=== PATIENT | male | born 1945 | race Caucasian/White ===

== ENCOUNTER 2021-06-02 14:36 | Emergency (ER) | payer BC, MEDICARE ==
[~2021-06-02] VITALS: Ht 195.6 cm; Wt 91.5 kg
--- NOTE | 2021-06-02 15:24 | RAD ---
CT STROKE HEAD W/O History: Reason: r. sided sensation decreased, reports weaknesS / Spl. Instructions: / History: Comparison: None. Technique: Noncontrast CT imaging was performed of the head. Exposure: One or more of the following individualized dose reduction techniques were utilized for thi s examination: 1. Automated exposure control 2. Adjustment of the mA and/or kV according to patient size 3. Use of iterative reconstruction technique. Findings: No intracranial hemorrhage. No mass effect. No hydrocephalus. Mild brain parenchymal volume loss. Mild foci of decreased attenuation within the hemispheric white m atter, most often due to chronic microvascular ischemia. Intracranial atheromatous calcifications. Imaged orbits are unremarkable. Imaged paranasal sinuses and mastoid air cells are clear. No acute ca lvarial fracture. Impression: 1. No acute intracranial abnormality. 2. Mild nonspecific white matter changes, most often due to chronic microvascular ischemia. If persi stent clinical concern for acute ischemia, MRI can better evaluate. FOR INTERNAL CODING PURPOSES Critical result: Findings discussed with ER at 06/02/2021 3:20 PM. RESULT CODE: (C) Electronically signed by: Zeke Castillo DO (06/02/2021 3:22 PM) [id number]
--- NOTE | 2021-06-02 15:28 | PHYS DOC ---
Past History Additional Past Medical Histor: [facility] (MARTINEZ BOTELLO APRN) Past Surgical History: Other Additional Past Surgical Histo: LIVER TRANSPLANT 2006; DIAYLSIS SHUNT R ARM; HERNIA REPAIR; HEART ABLATION (MARTINEZ BOTELLO APRN) Alcohol Use: None (MARTINEZ BOTELLO APRN) General Adult EDM: Chief Complaint: UPPER EXTREMITY PAIN HPI: HPI: Patient presents to the emergency department for right arm pain and tingling in his right hand. Patient reports that he laid down around 1400 and started experiencing right-sided neck pain that radiated into his head along with tingling in his right hand and right arm pain. Patient is a dialysis patient and receives dialysis Saturday and Saturday. He also has a history of liver disease with liver transplant and hypertension. Patient denies any chest pain, fevers, vision loss, or shortness of breath. (MARTINEZ BOTELLO APRN) Review of Systems: Review of Systems: Constitutional: See HPI Eyes: See HPI Respiratory: See HPI Cardiovascular: See HPI GI: See HPI Neurologic: See HPI (MARTINEZ BOTELLO APRN) Allergies: Allergies: Allergies Coded Allergies Type Severity Reaction Last Updated Verified ENZO Inhibitors Allergy Unknown 06/02/21 Yes Beta-Blockers (Beta-Adrenergic Bloc Allergy Unknown 06/02/21 Yes (MARTINEZ BOTELLO APRN) Physical Exam: PE: Constitutional: Well developed, well nourished, no acute distress, non-toxic appearance. [] HENT: Normocephalic, atraumatic, bilateral external ears normal, oropharynx moist, no oral exudates, nose normal. [] Eyes: PERRLA, 4 mm bilaterally, EOMI, conjunctiva normal, no discharge. [] Neck: Normal range of motion, no tenderness, supple, no stridor. [] Cardiovascular:Heart rate regular rhythm, no murmur [] Lungs & Thorax: Bilateral breath sounds clear to auscultation [] Abdomen: Bowel sounds normal, soft, no tenderness, no masses, no pulsatile masses. [] Skin: Warm, dry, no erythema, no rash. [] Back: Normal range of motion Extremities: No tenderness, no cyanosis, no clubbing, ROM intact, no edema, dialysis fistula right arm-thrill palpated. [] Neurologic: Alert and oriented X 3, normal motor function, normal sensory function, no focal deficits noted, see NIHSS. [] Psychologic: Affect normal, judgement normal, mood normal. [] (MARTINEZ BOTELLO APRN) Current Patient Data: Labs: Laboratory Tests Test 06/02/21 15:30 White Blood Count 8.5 x10^3/uL Red Blood Count 3.83 x10^6/uL Hemoglobin 12.6 g/dL Hematocrit 37.2 % Mean Corpuscular Volume 97 fL Mean Corpuscular Hemoglobin 33 pg Mean Corpuscular Hemoglobin Concent 34 g/dL Red Cell Distribution Width 14.2 % Platelet Count 196 x10^3/uL Neutrophils (%) (Auto) 66 % Lymphocytes (%) (Auto) 21 % Monocytes (%) (Auto) 10 % Eosinophils (%) (Auto) 3 % Basophils (%) (Auto) 1 % Neutrophils # (Auto) 5.5 x10^3uL Lymphocytes # (Auto) 1.7 x10^3/uL Monocytes # (Auto) 0.9 x10^3/uL Eosinophils # (Auto) 0.3 x10^3/uL Basophils # (Auto) 0.1 x10^3/uL Prothrombin Time 10.2 SEC Prothromb Time International Ratio 1.0 Activated Partial Thromboplast Time 27 SEC Sodium Level 138 mmol/L Potassium Level 4.2 mmol/L Chloride Level 96 mmol/L Carbon Dioxide Level 34 mmol/L Anion Gap 8 Blood Urea Nitrogen 25 mg/dL Creatinine 4.8 mg/dL Estimated GFR (Cockcroft-Gault) 11.9 BUN/Creatinine Ratio 5 Glucose Level 113 mg/dL Glucose (Fingerstick) 117 mg/dL Calcium Level 9.2 mg/dL Total Bilirubin 0.4 mg/dL Aspartate Amino Transf (AST/SGOT) 19 U/L Alanine Aminotransferase (ALT/SGPT) 22 U/L Alkaline Phosphatase 81 U/L Troponin I Quantitative 0.017 ng/mL Total Protein 7.4 g/dL Albumin 3.5 g/dL Albumin/Globulin Ratio 0.9 Current Medications Medications (Trade) Dose Ordered Sig/Ady Route PRN Reason Start Time Stop Time Status Last Admin Dose Admin Iohexol (Omnipaque 350 Mg/ml) 100 ml 1X ONCE IV 06/02/21 15:30 06/02/21 15:31 DC 06/02/21 16:22 Info (Do NOT chart on this entry -- for MONITORING) 1 each PRN DAILY PRN MC SEE COMMENTS 06/02/21 15:30 06/04/21 15:29 Diphenhydramine HCl (Benadryl) 25 mg 1X ONCE IVP 06/02/21 15:30 06/02/21 15:31 DC 06/02/21 16:01 Prochlorperazine Edisylate (Compazine) 10 mg 1X ONCE IV 06/02/21 15:30 06/02/21 15:31 DC 06/02/21 16:03 Ketorolac Tromethamine (Toradol 30mg Vial) 30 mg 1X ONCE IVP 06/02/21 15:30 06/02/21 15:31 DC 06/02/21 15:59 Vital Signs: Vital Signs Date Time Temp Pulse Resp B/P (MAP) Pulse Ox O2 Delivery O2 Flow Rate FiO2 06/02/21 14:47 97.7 80 18 151/73 (99) 96 Room Air (MARTINEZ BOTELLO PATIENT CARE SECRETARY) EKG: EKG: EKG performed by ER staff at 1515 shows sinus rhythm with a rate of 78, QTc of 474, no STEMI read by Dr. Leger at 1522 [] (MARTINEZ BOTELLO PATIENT CARE SECRETARY) Radiology/Procedures: Radiology/Procedures: []PROCEDURE: CT CODE STROKE HEAD WO CT STROKE HEAD W/O History: Reason: r. sided sensation decreased, reports weaknesS / Spl. Instructions: / History: Comparison: None. Technique: Noncontrast CT imaging was performed of the head. Exposure: One or more of the following individualized dose reduction techniques were utilized for this examination: 1. Automated exposure control 2. Adjustment of the mA and/or kV according to patient size 3. Use of iterative reconstruction technique. Findings: No intracranial hemorrhage. No mass effect. No hydrocephalus. Mild brain parenchymal volume loss. Mild foci of decreased attenuation within the hemispheric white matter, most often due to chronic microvascular ischemia. Intracranial atheromatous calcifications. Imaged orbits are unremarkable. Imaged paranasal sinuses and mastoid air cells are clear. No acute calvarial fracture. Impression: 1. No acute intracranial abnormality. 2. Mild nonspecific white matter changes, most often due to chronic microvascular ischemia. If persistent clinical concern for acute ischemia, MRI can better evaluate. FOR INTERNAL CODING PURPOSES Critical result: Findings discussed with ER at 06/02/2021 3:20 PM. RESULT CODE: (C) Electronically signed by: Zeke Castillo DO (06/02/2021 3:22 PM) [id number] DICTATED AND SIGNED BY: ZEKE CASTILLO DO DATE: 06/02/21 1515 CC: CATHY CHIN; EMERGENCY,DEPARTMENT; MARTINEZ BOTELLO PATIENT CARE SECRETARY ~MTH0 0 PROCEDURE: CT ANGIOGRAPHY HEAD AND NECK CTA HEAD AND NECK W/WO CONTRAST History:Reason: decreased sensation face, right side of arm/hand numbness / Spl. Instructions: DIALYSIS PATIENT - DIALYSIS ON SATURDAY/ Technique: After bolus of intravenous contrast, volumetric CT data acquisition was acquired of the head and neck. Multiplanar reconstruction images to include MIP and 3-D reconstruction images are submitted. Exposure: One or more of the following individualized dose reduction techniques were utilized for this examination: 1. Automated exposure control 2. Adjustment of the mA and/or kV according to patient size 3. Use of iterative reconstruction technique. Comparison: None Any determination of stenosis is based on NASCET criteria. Head CTA: ICA: Severe atheromatous plaque within the carotid siphons with mild and moderate multifocal narrowing. No occlusion. MCA: No stenosis, occlusion or aneurysm. ERIKA: No stenosis, occlusion or aneurysm. CLINICAL SCIENCE LIAISON: No stenosis, occlusion or aneurysm. Basilar artery: No stenosis, occlusion or aneurysm. Distal vertebral arteries: Decreased flow with occlusion of the right intracranial vertebral artery just proximal to the basilar artery. Posterior inferior cerebellar artery not well identified on the right. Pain left vertebral artery. Patent superior sagittal, straight, transverse and sigmoid venous sinuses. CT angiogram neck: Aortic arch: Mild atheromatous plaque within the aortic arch. Common carotid arteries: No stenosis, occlusion or dissection. Internal carotid arteries: Moderate or most plaque within the carotid bifurcations. Less than 50 percent narrowing of the bilateral proximal internal carotid arteries. No occlusion. External carotid arteries: Patent Vertebral arteries: No meniscal within the right distal vertebral artery within the neck. Imaged lung apices are unremarkable. Soft tissues appear normal. Bones: Moderate multilevel cervical spondylosis most prominent C4-C5 and C5-C6. Multilevel canal narrowing with ossification of the posterior longitudinal ligament most prominent at the C5-C6 level. Multilevel neuroforaminal narrowing. Impression: 1. Right distal vertebral artery narrows and occludes intracranially at the termination, may relate to atherosclerotic occlusion although dissection is possible. 2. Moderate atheromatous plaque within the carotid bifurcations with less than 50 percent narrowing of the bilateral proximal internal carotid arteries. 3. Moderate cervical spondylosis with ossification of posterior longitudinal ligament contributing to canal narrowing most prominent at the C5-C6 level. MRI can further evaluate severity as clinically warranted. FOR INTERNAL CODING PURPOSES Critical result: Findings discussed with Martinez Lowe at 06/02/2021 5:08 PM. RESULT CODE: (C) Electronically signed by: Zeke Castillo DO (06/02/2021 5:13 PM) [id number] DICTATED AND SIGNED BY: ZEKE CASTILLO DO DATE: 06/02/211656 CC: CATHY CHIN; MARTINEZ BOTELLO APRN ~MTH0 0 (MARTINEZ BOTELLO APRN) Heart Score: C/O Chest Pain: No Risk Factors: Risk Factors: DM, Current or recent (<one month) smoker, HTN, HLP, family history of CAD, obesity. Risk Scores: Score 0 - 3: 2.5% MACE over next 6 weeks - Discharge Home Score 4 - 6: 20.3% MACE over next 6 weeks - Admit for Clinical Observation Score 7 - 10: 72.7% MACE over next 6 weeks - Early Invasive Strategies (MARTINEZ BOTELLO APRN) Course & Med Decision Making: Course & Med Decision Making Pertinent Labs and Imaging studies reviewed. (See chart for details) Patient presents to the emergency department for right-sided neck pain that radiates into his head and down his arm. As the ER nurse was evaluating patient, he started complaining of tingling in his right hand. Following that finding, a code stroke was called for decreased sensation to his right forehead and right lower leg. Patient's stroke scale was 1, patient had decreased sensation to his right forehead but sensation was intact to his mid face and lower face is well is intact sensation to his right arm and decreased sensation to his right lower leg.. CT scan of head was negative for any acute findings. Blood work ordered as well as a CT angios head and neck. Patient's creatinine was 4.8. CBC and troponin were negative. Patient CT scan of his head was negative. His CTA showed right distal vertebral artery narrowing and occlusion intracranially possible atherosclerotic occlusion or dissection and 50% narrowing of bilateral proximal internal carotid arteries. I spoke to Dr. Tipton's nurse practitioner regarding transfer to [facility] a nd he declined transfer stating that patient need to go to higher level of care. Spoke to [facility]'s transfer line and I spoke to Dr. Venegas with neurology and he agreed to admit the patient under his services stroke activation for neurological evaluation, MRI. I discussed patient's findings with him and his and also discussed care plan including transfer to [facility]. Patient states that he still has a headache and right hand tingling. They were agreeable to transfer. Pain medication ordered for patient's headache. Images clouded to . Transfer of patient in process 1743. Patient departed ER at this time 1850. (MARTINEZ BOTELLO APRN) Dragon Disclaimer: Dragon Disclaimer: This electronic medical record was generated, in whole or in part, using a voice recognition dictation system. (MARTINEZ BOTELLO APRN) NIH Stroke Scale: NIH Stroke Scale Response (Comments) Value Level of Consciousness: 0 Alert/Responsive 0 LOC Questions: 0 Answers both correctly 0 LOC Commands: 0 Performs both tasks 0 Best Gaze: 0 Normal 0 Visual: 0 No visual loss 0 Facial Palsy: 0 Normal, symmetrical 0 Motor - Left Arm 0 No drift 0 Motor - Right Arm 0 No drift 0 Motor - Left Leg 0 No drift 0 Motor: Right Leg 0 No drift 0 Limb Ataxia: 0 Absent 0 Sensory: 1 Mid to moderate loss (decreased sensat ion forehead, r lower leg. normal sensation rest of face and leg, and r. arm) 1 Best Language: 0 Normal 0 Dysathria: 0 Normal 0 Extinction and Inattention: 0 Normal 0 Total 1 Departure Departure: Impression: Primary Impression: Vertebral artery stenosis/occlusion Qualified Codes: I65.01 - Occlusion and stenosis of right vertebral artery Additional Impressions: Numbness and tingling of right hand Headache Qualified Codes: R51.9 - Headache, unspecified Disposition: 02 SHORT TERM HOSPITAL Condition: STABLE Referrals: CATHY CHIN (PCP) Attending Signature Attending Signature I have participated in the care of this patient and I have reviewed and agree with all pertinent clinical information above including history, exam, and recommendations. (GURVINDER ENAMORADO MD) MARTINEZ BOTELLO APRN Jun 02, 2021 15:28 GURVINDER ENAMORADO MD Jun 04, 2021 17:07
[2021-06-02] MEDS ORDERED: KETOROLAC 30 MG/ML VIAL. IVP ONE (15:30)
[2021-06-02] MEDS ORDERED: IOHEXOL 350 MG/ML 100 ML VIAL. IV ONE (15:30)
[2021-06-02] MEDS ORDERED: PROCHLORPERAZINE 10 MG/2 ML VIAL. IV ONE (15:30)
[2021-06-02] MEDS ORDERED: diphenhydrAMINE 50 MG/ML VIAL IVP ONE (15:30)
[2021-06-02] MEDS ORDERED: CONTRAST GIVEN. MC PRN (15:30)
[2021-06-02 16:22] LABS: CALCIUM 9.2 mg/dL (8.5-10.1); CREATININE 4.8 mg/dL (0.7-1.3); GFR 11.9; POTASSIUM 4.2 mmol/L (3.5-5.1)
[2021-06-02 16:25] LABS: BASO # 0.1 x10^3/uL (0.0-0.2); BASO % 1 % (0-3); EOS # 0.3 x10^3/uL (0.0-0.7); EOS % 3 % (0-3); HEMATOCRIT 37.2 % (39.0-53.0); HEMOGLOBIN 12.6 g/dL (13.0-17.5); LYMPH # 1.7 x10^3/uL (1.0-4.8); LYMPH % 21 % (24-48); MEAN CORPUSCULAR HEMOGLOBIN 33 pg (25-35); MEAN CORPUSCULAR HGB CONC 34 g/dL (31-37); MEAN CORPUSCULAR VOLUME 97 fL (79-100); MONO # 0.9 x10^3/uL (0.0-1.1); MONO % 10 % (0-9); NEUT # 5.5 x10^3uL (1.8-7.7); NEUT % 66 % (31-73); PLATELET COUNT 196 x10^3/uL (140-400); RED BLOOD COUNT 3.83 x10^6/uL (4.30-5.70); RED CELL DISTRIBUTION WIDTH 14.2 % (11.5-14.5); WHITE BLOOD COUNT 8.5 x10^3/uL (4.0-11.0)
[2021-06-02 16:28] LABS: ALBUMIN 3.5 g/dL (3.4-5.0); ALBUMIN/GLOBULIN RATIO 0.9 (1.0-1.7); TOTAL BILIRUBIN 0.4 mg/dL (0.2-1.0); TOTAL PROTEIN 7.4 g/dL (6.4-8.2)
--- NOTE | 2021-06-02 17:15 | RAD ---
CTA HEAD AND NECK W/WO CONTRAST History:Reason: decreased sensation face, right side of arm/hand numbness / Spl. Instructions: DIALYS IS PATIENT - DIALYSIS ON SATURDAY/ Technique: After bolus of intravenous contrast, volumetric CT data acquisition was acquired of the he ad and neck. Multiplanar reconstruction images to include MIP and 3-D reconstruction images are submi tted. Exposure: One or more of the following individualized dose reduction techniques were utilized for thi s examination: 1. Automated exposure control 2. Adjustment of the mA and/or kV according to patient size 3. Use of iterative reconstruction technique. Comparison: None Any determination of stenosis is based on NASCET criteria. Head CTA: ICA: Severe atheromatous plaque within the carotid siphons with mild and moderate multifocal narrowin g. No occlusion. MCA: No stenosis, occlusion or aneurysm. ERIKA: No stenosis, occlusion or aneurysm. GIS ADMINISTRATOR: No stenosis, occlusion or aneurysm. Basilar artery: No stenosis, occlusion or aneurysm. Distal vertebral arteries: Decreased flow with occlusion of the right intracranial vertebral artery j ust proximal to the basilar artery. Posterior inferior cerebellar artery not well identified on the r ight. Pain left vertebral artery. Patent superior sagittal, straight, transverse and sigmoid venous sinuses. CT angiogram neck: Aortic arch: Mild atheromatous plaque within the aortic arch. Common carotid arteries: No stenosis, occlusion or dissection. Internal carotid arteries: Moderate or most plaque within the carotid bifurcations. Less than 50 perc ent narrowing of the bilateral proximal internal carotid arteries. No occlusion. External carotid arteries: Patent Vertebral arteries: No meniscal within the right distal vertebral artery within the neck. Imaged lung apices are unremarkable. Soft tissues appear normal. Bones: Moderate multilevel cervical spondylosis most prominent C4-C5 and C5-C6. Multilevel canal narr owing with ossification of the posterior longitudinal ligament most prominent at the C5-C6 level. Mul tilevel neuroforaminal narrowing. Impression: 1. Right distal vertebral artery narrows and occludes intracranially at the termination, may relate to atherosclerotic occlusion although dissection is possible. 2. Moderate atheromatous plaque within the carotid bifurcations with less than 50 percent narrowing of the bilateral proximal internal carotid arteries. 3. Moderate cervical spondylosis with ossification of posterior longitudinal ligament contributing t o canal narrowing most prominent at the C5-C6 level. MRI can further evaluate severity as clinically warranted. FOR INTERNAL CODING PURPOSES Critical result: Findings discussed with Brissa Lowe at 06/02/2021 5:08 PM. RESULT CODE: (C) Electronically signed by: Zeke Castillo DO (06/02/2021 5:13 PM) [id number]
[2021-06-02 18:40] VITALS: BP 143/68
--- NOTE | 2021-06-02 18:45 | EKG ---
[address] [address] Test Date: 2021-06-02 Test Time: 15:15:24 Pat Name: FARRAH VARGAS Department: Room: Gender: M Digital Media Designer: LISA : 1945 Requested By: MARTINEZ BOTELLO Order Number: [id number] Reading MD: Carter Mitchell MD Measurements Intervals [place] Rate: 78 P: -31 MD: 134 QRS: 25 QRSD: 94 T: 75 QT: 412 QTc: 474 Interpretive Statements SINUS RHYTHM 1ST DEGREE AVB Electronically Signed On 06-05-2021 11:12:19 CDT by Carter Mitchell MD
== END 2021-06-02 18:45 | disposition short-term general hospital (02) ==
LOC: ER 14:36
DX: I65.01 Occlusion and stenosis of right vertebral artery (principal); R51.9 Headache, unspecified; R20.0 Anesthesia of skin; Z88.8 Allergy status to other drugs, medicaments and biological substances
CPT/HCPCS: 36415; 70450; 70496; 70498; 80053; 82947; 84484; 85025; 85610; 85730; 93005; 96374; 96375; 99285; J0780; J1200; J1885; J3010; Q9967